=== PATIENT | male | born 1960 | race Caucasian/White ===

== ENCOUNTER 2021-01-24 15:43 | Outpatient (CLI) | payer OTHER, SELFPAY ==
--- NOTE | ~2021-01-24 | CT_ITS ---
EXAMINATION: CT lung screening DATE: 01/24/2021 16:14 INDICATION: Personal history of tobacco dependence, current smoker with 75 pack year history TECHNIQUE: Computed tomography (CT) of the chest was performed without intravenous contrast. The dose -length product (DLP) was 529.95 mGy-cm. Automated exposure control and iterative reconstruction tech [employer] were employed. COMPARISON: 11/24/2019 FINDINGS: No suspicious pulmonary nodules are identified. There is no pleural effusion or pneumothora x. No pathologically enlarged thoracic lymph nodes are identified. The heart size is normal. 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 There are healed posterior fractures of the l eft ninth and 10th ribs. There is a posterior diaphragmatic hernia on the left containing the tail of the pancreas. There is a 2 cm cyst of the liver. The gallbladder is surgically absent. 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 IMPRESSION: 1. Lung-RADS category 1: Negative. Continue annual screening with noncontrast low-dose chest CT in 12 months. Reviewed, dictated and finalized at location A. OR ESTIMATOR IMPRESSION: 1. Lung-RADS category 1: Negative. Continue annual screening with noncontrast l ow-dose chest CT in 12 months.
== END 2021-01-24 15:44 | disposition home or self-care (01) ==
PROVIDERS: PCP Family Medicine; Visit Provider Nurse Practitioner Gerontology
DX: Z12.2 Encounter for screening for malignant neoplasm of respiratory organs (principal); Z87.891 Personal history of nicotine dependence
CPT/HCPCS: 71271